=== PATIENT | female | born 1985 | race Caucasian/White ===

== ENCOUNTER 2017-06-24 11:39 | Observation (INO) | payer OTHER ==
[~2017-06-24] VITALS: Ht 160 cm; Wt 93.1 kg
[~2017-06-24 11:39] MED LIST: IBUP-1222 PO; OXYC-302 PO; PNV1TABL47 PO
[2017-06-24 11:45] VITALS: BP 105/68
== END 2017-06-24 18:19 | disposition home or self-care (01) ==
LOC: LDOP 11:39 → LDIP 12:55
PROVIDERS: ADMIT Obstetrics & Gynecology; ATTEND Obstetrics & Gynecology
DX: O36.8130 Decreased fetal movements, third trimester, not applicable or unspecified (principal); Z3A.34 34 weeks gestation of pregnancy
CPT/HCPCS: 59025; 76815; 76819; 99211; G0378; G0463